=== PATIENT | female | born 1990 | race Caucasian/White ===

== ENCOUNTER 2020-10-10 13:49 | Observation (INO) | payer MEDICAID ==
[~2020-10-10] VITALS: Ht 172.7 cm; Wt 51.4 kg
[~2020-10-10 13:49] MED LIST: OXYC1TAB14 PO; PREN1TAB52 PO; SERT100T PO; SERT50TA PO
--- NOTE | 2020-10-10 13:50 | NUR ---
pt BIB [facility] or [facility]. per report, pt has a known hx of heroin and methampheamine use, and showed up at he home of an aquaintance yesterday. per report, pt was sitting in a porch swing, and then was found on the ground. it is unknown if pt fell or got onto the ground herself. pt is alert and tracking, but not speaking. pt follows some commands but does not answer questions. no obvious injury. pt clothing is dirty and pt has bark all over her clothes. pt in no resp. distress. pt will not allow staff to undress her fully to get into a gown. no family at bedside report to Sergio MAHONEY
--- NOTE | 2020-10-10 14:05 | NUR ---
LATE ENTRY DUE TO PATIENT CARE: ERMD AT BEDSIDE FOR EVALUATION.
--- NOTE | 2020-10-10 14:09 | NUR ---
LATE ENTRY DUE TO PATIENT CARE: STONE, ROCK SINGER AT BEDSIDE FOR EVALUATION.
[2020-10-10 14:44] LABS: ALANINE AMINOTRANSFERASE 140 U/L (12-78); ALBUMIN 3.8 g/dL (3.4-5.0); ANION GAP 4 mmol/L (5-15); CALCIUM 9.2 mg/dL (8.5-10.1); CHLORIDE 111 mmol/L (98-107); CREATININE 0.51 mg/dL (0.55-1.02)
[2020-10-10 14:49] LABS: ALKALINE PHOSPHATASE 99 U/L (45-117); BILIRUBIN,TOTAL 1.3 mg/dL (0.2-1.0); TOTAL PROTEIN 8.1 g/dL (6.4-8.2)
[2020-10-10 14:50] LABS: SALICYLATE LEVEL < 1.7 mg/dL (2.8-20.0)
[2020-10-10 14:59] LABS: BASOPHILS % (AUTO) 1 % (0-1); EOSINOPHILS % (AUTO) 1 % (1-7); LYMPHOCYTES % (AUTO) 21 % (22-44); MEAN CORPUSCULAR HEMOGLOBIN 29.1 pg (27.0-34.8); MEAN CORPUSCULAR HGB CONC 33.5 g/dL (32.4-35.8); MEAN PLATELET VOLUME 10.1 fL (7.4-10.4); MONOCYTES % (AUTO) 10 % (2-9); NEUTROPHILS % (AUTO) 68 % (42-75); PLATELET COUNT 203 x10^3/uL (130-400); RED BLOOD COUNT 4.83 x10^6/uL (3.82-5.3); RED CELL DISTRIBUTION WIDTH 16.6 % (9.6-15.2)
--- NOTE | 2020-10-10 15:19 | NUR ---
CT COMPLETED AND PT LYING ON LEFT SIDE. NONVERBAL WHEN SPOKEN TO
[2020-10-10 15:23] LABS: MD SCAN
--- NOTE | 2020-10-10 16:26 | NUR ---
PATIENT RESTING IN GURNEY WITH EYES CLOSED, RESP EVEN AND UNLABORED, ALL CORDS OUT OF REACH OF PATIENT, FREQUENT ROUNDING IN PLACE.
--- NOTE | 2020-10-10 16:55 | NUR ---
TASK RN: PT IN DIRECT VIEW OF SITTER.
--- NOTE | 2020-10-10 17:06 | NUR ---
UNABLE TO GET VITAL SIGNS, PATIENT IS BEING UNCOOPERATIVE.
--- NOTE | 2020-10-10 17:17 | NUR ---
EARNEST collected with in and out cath. TINOCO walked to lab
--- NOTE | 2020-10-10 17:26 | NUR ---
TASK RN: AT BEDSIDE RE-EVALUATING PT. PT REFUSING VITAL SIGNS. WILL CONTINUE TO MONITOR.
[2020-10-10 17:42] LABS: AMPHETAMINE SCREEN, URINE Positive (Negative); BARBITURATE SCREEN, URINE Negative (Negative); BENZODIAZEPINE SCREEN, URINE Negative (Negative); CANNABINOID SCREEN, URINE Positive (Negative); COCAINE SCREEN, URINE Negative (Negative); METHADONE SCREEN, URINE Negative (Negative); OPIATE SCREEN, URINE Negative (Negative)
--- NOTE | 2020-10-10 18:32 | NUR ---
PATIENT LAYING IN GURNEY, ATE DINNER, NADN, PATIENT REFUSING VITALS, SUICIDE PRECAUTIONS IN PLACE, SITTER IN LINE OF SIGHT.
--- NOTE | 2020-10-10 20:00 | NUR ---
PT RESTING IN BED, PT ON MONITOR WITH PT ROOM SI SECURE WITH SITTER AT PT BEDSIDE.
--- NOTE | 2020-10-10 21:41 | NUR ---
PT RESTING IN BED, PT ON MONITOR WITH PT ROOM SI SECURE WITH SITTER AT PT BEDSIDE.
[2020-10-11] MEDS ORDERED: ZIPRASIDONE 20 MG INJ IM ONE ×5 (00:47→15:00)
--- NOTE | 2020-10-11 01:28 | NUR ---
PT WANDERING HALLS. PT TALKING WITH RN BUT REFUSES TO AWNSER QUESTIONS. PT AGREED TO STAY IN BED AND TALK WITH TELE PSYCH . PT IN ROOM WITH SITTER AT DOOR.
--- NOTE | 2020-10-11 04:04 | NUR ---
PT RESTING IN BED, PT ON MONITOR WITH PT ROOM SI SECURE WITH SITTER AT PT BEDSIDE.
--- NOTE | 2020-10-11 05:12 | NUR ---
PT REFUSED TO TALK WITH TELE-PSYCH . TELE-PSYCH SAID CALL THEM BACK WHEN PT IS WILLING TO TALK.
--- NOTE | 2020-10-11 05:14 | NUR ---
PT REFUSED TO GET OUT OF ER [facility] TO SWITCH INTO A HOSPITAL BED. RN WILL TRY UZMA
--- NOTE | 2020-10-11 06:32 | NUR ---
PT RESTING IN BED, PT ON MONITOR WITH PT ROOM SI SECURE WITH SITTER AT PT BEDSIDE.
--- NOTE | 2020-10-11 07:09 | NUR ---
REPORT TO ECTOR MAHONEY
--- NOTE | 2020-10-11 07:09 | NUR ---
report received from nancy young.
--- NOTE | 2020-10-11 07:21 | NUR ---
room secure. vss. pt sleeping in hospital bed at this time. sitter monitoring from [facility].
[2020-10-11 07:35] LABS: ALBUMIN 3.4 g/dL (3.4-5.0); ANION GAP 7 mmol/L (5-15); CHLORIDE 111 mmol/L (98-107); CREATININE 0.49 mg/dL (0.55-1.02)
--- NOTE | 2020-10-11 07:35 | NUR ---
pt is wandering hallways. this rn educated this pt to go back to her room, but pt refused to answer questions and went to room 43. this rn moved her to room 1. pt stated"i wanna get out of here. i don't know why i'm here."
[2020-10-11 07:38] LABS: SALICYLATE LEVEL < 1.7 mg/dL (2.8-20.0)
--- NOTE | 2020-10-11 07:38 | NUR ---
this rn discussed with edmd. edmd at bedside. pt agreed with poc. pt needs tele psych for evaluation.
--- NOTE | 2020-10-11 08:25 | NUR ---
pt wandering in hallway. this rn and sitter redirected and educated pt. pt still refused to answer and incooperative. pt incontinent of stool and urine on the floor. security called and 2points of restraints placed at this time.
--- NOTE | 2020-10-11 08:52 | NUR ---
pt spitting on this rn/neena rn/sitter/door at this time. pt educated regarding her behavior but pt didn't change her behavior at this time. security called. 4 points restraints placed at this time. edmd noticed.
--- NOTE | 2020-10-11 08:54 | NUR ---
pt medicated per emar. pt tolerated well.
--- NOTE | 2020-10-11 10:14 | NUR ---
pt sleeping in rsavanna. resps even and unlabored. room secure. sitter outside for safety.
--- NOTE | 2020-10-11 10:50 | NUR ---
Task RN: pt found sliding herself off end of bed in 4-point restraints with BUE in down position instead of swimmer's position. Assisted pt back up into center of bed and noted wet sheets and gown. civil engineering technician obtained for assistance, gown cut off as it had no snaps on sleeves, and new snap sleeve gown applied with clean sheets and clean jaison pad placed under pt.
--- NOTE | 2020-10-11 11:10 | NUR ---
Pt found sliding herself back down off end of bed while in 4-point restraints. Security called for repositioning pt into swimmer's position for safety. RUE first to be moved in the upward position at this time.
--- NOTE | 2020-10-11 11:21 | NUR ---
Report received for meal break coverage from DENZEL Nuñez and care assumed for break period only.
--- NOTE | 2020-10-11 11:29 | NUR ---
zoo veterinarian arrived at bedside for assessment at this time.
--- NOTE | 2020-10-11 12:26 | NUR ---
Report given to DENZEL Nuñez and care transferred back to her as primary RN. She is aware of needed renewal of restraints order and new 15 minute documetation sheet.
--- NOTE | 2020-10-11 14:42 | NUR ---
late entry due to patient care: pt stated "i need water." this rn provided some water and food. pt is agitated nneka attempted to get out of bed x 3 times.
--- NOTE | 2020-10-11 14:44 | NUR ---
late entry due to patient care: pt screemeing from room. pt incontinent of stool all over the bed. this rn educated pt regarding her behavior at this time.
--- NOTE | 2020-10-11 14:47 | NUR ---
THIS RN NOTIFIED EDMD REGARDING HER BEHAVIOR. EDMD WILL ORDER MEDS SOON POSSIBLE.
--- NOTE | 2020-10-11 15:15 | NUR ---
PE MEDICATED PER EMAR FOR HER AGITATION. PT TOLERATED WELL.
--- NOTE | 2020-10-11 15:15 | NUR ---
LATE ENTRY DUE TO PATIENT CARE: THIS RN DISCUSSED WITH EDMD ABOUT RESTRAINTS. PER EDMD, PT NEEDS RESTRAINTS STILL DUE TO HER BEHAVIOR.
--- NOTE | 2020-10-11 15:26 | NUR ---
PT ATTEMPTED TO GET OUT OF BES X A FEW TIMES AND HER TANGLED UP HER SELF. THIS RN CALLED SECURITY AND REMOVED RESTRAINTS FOR HER SAFETY.
--- NOTE | 2020-10-11 15:28 | NUR ---
THIS RN REMOVED HER GURNEY DUE TO SAFETY REASONS. PROVIDED NEW GOWN, CLEANED, AND NEW SHEETS.
[2020-10-11] MEDS ORDERED: ALBU0.63 NEB (15:53)
[2020-10-11] MEDS ORDERED: AMLO-150 PO (15:53)
[2020-10-11] MEDS ORDERED: CARV3.122 PO (15:53)
[2020-10-11] MEDS ORDERED: FLONASE SPRAY (15:54)
[2020-10-11] MEDS ORDERED: MELA5TAB21 PO (15:54)
[2020-10-11] MEDS ORDERED: OMEP-110 PO (15:55)
[2020-10-11] MEDS ORDERED: VALS320T2 PO (15:56)
[2020-10-11] MEDS ORDERED: CYCL1DRO EACHEYE (15:56)
[2020-10-11] MEDS ORDERED: ACET325T14 PO (15:56)
--- NOTE | 2020-10-11 16:12 | NUR ---
PT SLEEPING ON THE MAT. RESPS EVEN AND UNLABORED. SITTER MONITORING FROM [facility] FOR SAFETY.
--- NOTE | 2020-10-11 16:57 | NUR ---
BREAK RN: PT RESTING IN ROOM. REGULAR RESP. SITTER AT DOOR. WILL CONTINUE TO MONITOR WHILE PRIMARY RN IS ON BREAK.
--- NOTE | 2020-10-11 17:37 | NUR ---
PT'S MOTHER AT BEDSIDE. PT SLEEPING IN ROOM. RESPS EVEN AND UNLABORED. SITTER MONITORING FROM [facility] FOR SAFETY. ROOM SECURE.
--- NOTE | 2020-10-11 18:11 | NUR ---
pt sleeping on mat at this time. resps even and unlabored. room secure. sitter outside for safety.
--- NOTE | 2020-10-11 18:12 | NUR ---
diet tray ordered at this time.
--- NOTE | 2020-10-11 18:47 | NUR ---
diet tray provided at this time.
--- NOTE | 2020-10-11 19:23 | NUR ---
REPORT RECIEVED FROM DENZEL BARNEY. PT RESTING ON MATTRESS, RESP EVEN/UNLABORED, IN LINE OF SIGHT OF SITTER
--- NOTE | 2020-10-11 19:59 | NUR ---
pt given dinner tray, refusing to answer questions at this time. agreeable to vitals. stable at this time.
--- NOTE | 2020-10-11 20:13 | NUR ---
pt agitated, walked to room 43 and got into bed, started drinking out of the faucet, pt not following directions back to room, security called. pt pulled back to room, and is laying in mattress, in line of sight of sitter at this time
[2020-10-11] MEDS ORDERED: LORazepam 2 MG/ML, 1ML ONE (20:26)
[2020-10-11] MEDS ORDERED: DIPHENHYDRAMINE 50 MG/ML, 1ML ONE (20:26)
[2020-10-11] MEDS ORDERED: DIPHENHYDRAMINE 50 MG/ML, 1ML IM ONE (21:00)
[2020-10-11] MEDS ORDERED: LORazepam 2 MG/ML, 1ML IM PRN (21:00)
--- NOTE | 2020-10-11 21:54 | NUR ---
pt sleeping in bed, im benadryl held because pt's condition changed. will continue to monitor. in line of sight of sitter
--- NOTE | 2020-10-11 23:02 | NUR ---
pt resting on mattress, resp even/unlabored, in line of sight of sitter
--- NOTE | 2020-10-12 00:21 | NUR ---
PT RESTING ON MATTRESS, RESP EVEN/UNLABORED, IN LINE OF SIGHT OF SITTER
--- NOTE | 2020-10-12 01:40 | NUR ---
pt got agitated, went to another patients room, had to be pulled back to her room, security phoned, medicated per emar, pt was agreeable when spoken to. in line of sight of nader
--- NOTE | 2020-10-12 02:42 | NUR ---
pt sleeping, resp even/unlabored, continuous pulse ox in place, in line of sight of sitter
--- NOTE | 2020-10-12 06:35 | NUR ---
Ant beaver in ED - 10/12/20 at 0636 by CHRIS PT SLEEPING IN MATTRESS, RESP EVEN/UNLABORED, IN LINE OF SIGHT OF SITTER
--- NOTE | 2020-10-12 06:36 | NUR ---
PT SLEEPING IN MATTRESS, RESP EVEN/UNLABORED, IN LINE OF SIGHT OF SITTER
--- NOTE | 2020-10-12 06:55 | NUR ---
REPORTS RECIEVED FROM JUDITH.
--- NOTE | 2020-10-12 08:05 | NUR ---
Report to [facility]
[2020-10-12 09:11] VITALS: BP 96/63
--- NOTE | 2020-10-12 09:13 | NUR ---
meal provided, pt cooperative but refusing to talk, nods to questions. Safety precautions in place.
--- NOTE | 2020-10-12 09:32 | NUR ---
Report provided to Mervin at [facility]
--- NOTE | 2020-10-12 09:45 | NUR ---
Pt accepted by Dr. Stevens at [facility], Guillermo Jeffries RN
--- NOTE | 2020-10-12 10:50 | NUR ---
report to stefanie young
--- NOTE | 2020-10-12 11:16 | NUR ---
PT SLEEPING. SAFETY PRECAUTIONS IN PLACE. SITTER AT SIDE DOOR WATCHING PT. AWAITING TRANSFER TO FACILITY.
== END 2020-10-13 11:38 | disposition home or self-care (01) ==
LOC: ED 10-11 08:50 → EDIP 10-11 08:51 → UNDOADMOB 10-11 09:41 → EDBD 10-11 09:41 → MERGE 10-11 09:41 → UNDODISOB 10-12 11:38 → UNDOADMOB 10-13 06:53 → EDIP 10-13 06:53 → UNDOADMOB 10-13 08:51 → EDIP 10-13 08:51 → UNDODISOB 10-13 11:38
PROVIDERS: ADMIT Emergency Medicine; ATTEND Emergency Medicine
DX: F29 Unspecified psychosis not due to a substance or known physiological condition (principal); R41.82 Altered mental status, unspecified; F15.10 Other stimulant abuse, uncomplicated; R74.01 Elevation of levels of liver transaminase levels; F11.20 Opioid dependence, uncomplicated; Z79.899 Other long term (current) drug therapy
CPT/HCPCS: 36415; 70450; 72125; 80048; 80053; 80299; 80307; 80320; 80329; 82040; 82140; 84703; 85025; 96372; 99285; G0378; J1200; J2060; J3486; G0480